=== PATIENT | male | born 1990 | race Caucasian/White ===

== ENCOUNTER 2025-06-22 15:36 | Emergency (ER) | payer MEDICAID ==
[~2025-06-22] VITALS: Ht 172.7 cm; Wt 72.0 kg
[2025-06-22 15:38] VITALS: TEMP 98
[2025-06-22 16:15] VITALS: BP 122/64; PULSE 89; RESP 16; O2SAT 99
== END 2025-06-22 17:16 | disposition home or self-care (01) ==
LOC: EMS 15:36
DX: S81.811A Laceration without foreign body, right lower leg, initial encounter (principal); W45.8XXA Other foreign body or object entering through skin, initial encounter; Y93.89 Activity, other specified; Y92.89 Other specified places as the place of occurrence of the external cause; Y99.8 Other external cause status
CPT/HCPCS: 12002; 99282; Z7502